=== PATIENT | female | born 1955 | race Caucasian/White ===

== ENCOUNTER → 2016-10-25 | Outpatient (CLI) | payer BC ==
[~2016-10-25] MED LIST: DIOVAN PO; LEXAPRO PO; NIFEDICAL PO; WELCHOL625 MG PO; [UNRECOGNIZED DRUG - OTHER]
--- NOTE | ~2016-10-25 | MR113 ---
[facility] A Service of [facility] & [facility] RADIOLOGY TEXT RESULTS PATIENT: ОЛЕГ PLUMMER LOCATION: [facility] : 55 UNIT #: [id number] AGE: [address]: Myles Martin MD SEX: F ORDER DR: [id number] [address] [address] [id number] P MR#: [id number] Acc #: [id number] NAME: ОЛЕГ PLUMMER : 1955 SEX: F STUDY DATE/TIME: 10/25/2016 12:05 UNIT: [facility] ROOM: STUDY DESCRIPTION: MR Lumbar Wo Contrast Attending Physician: Myles Martin M.D. Referring Physician: Myles Martin M.D. Ordering Physician: Myles Martin M.D. Primary Care Physician: Myles Martin M.D. MRI CENTER REPORT This report is preliminary unless electronic signature is present. EXAM Lumbar spine MRI without. HISTORY 61-year-old female who complains of low back pain with bilateral leg radiculopathy for 3 weeks. Decreased range of motion. Sudden onset of pain when getting into a truck. No history of cancer. COMMENT MRI of the lumbar spine performed without contrast using routine 1.5T wide-bore imaging technique. There are comparison plain films from 01/03/2011. There is grade 1 anterolisthesis of L3 on L4 which is probably new from that time and secondary to severe facet arthritis. It measures about 3-4 mm. There is disc desiccation in general from T12-L1 through L4-5 and there is loss of intervertebral disc height, psmd-pc-kcjmcapi at L3-4 and milder at T12-L1 and L1-2. The conus medullaris terminates at L1-2 and is normal. There is a component of epidural lipomatosis present at multiple levels. There are mild marrow endplate degenerative changes at the 3-4 level, type 2 posteriorly inferiorly L3. At T12-L1, there is moderate facet degenerative change bilaterally with mild ligamentum flavum thickening. There is mild concentric desiccated disc bulge and mild effacement of the thecal sac but no significant canal or foraminal stenosis. At L1-2, there is moderate facet degenerative change, right greater than left, with ligamentum flavum thickening. Some a mild concentric disc bulge, mild effacement of the thecal sac, but no significant central canal stenosis. The epidural fat pad is prominent. No significant foraminal impingement. [facility] A Service of [facility] RADIOLOGY TEXT RESULTS PATIENT: ОЛЕГ PLUMMER LOCATION: [facility] : 55 UNIT #: [id number] AGE: [address]: Myles Martin MD SEX: F ORDER DR: At L2-3, there is moderate right greater than left-side facet arthritis with mild ligamentum flavum thickening. The epidural fat pad is prominent posteriorly. There is no focal disc protrusion or extrusion. There is no canal stenosis at the level of L2-3 itself. At L3-4, there is a large disc extrusion associated with the grade 1 anterolisthesis of L3 on L4. There is severe bilateral facet degenerative change, ssnmfrea-zt-qdlzwk ligamentum flavum thickening bilaterally. There is a broad posterior protrusion with a superimposed extrusion in the left paramedian location and this extrusion extends cephalad from the level of the disc filling the left lateral recess. It appears to remain contiguous with the disc but there are components which have different signal characteristics and could appear to be sequestered if surgery is performed. The extrusion measures about 2.2 cm SI dimension, 1 cm AP dimension, and 1.3 cm ML dimension. There is severe mass effect on the left lateral recess. There is severe canal stenosis and fairly severe mass effect on the right lateral recess. There is mild right, ioub-ph-wooemyyl left-side foraminal narrowing. At L4-5, there is moderate facet arthritis bilaterally with moderate ligamentum flavum thickening. There is a broad-based posterior disc protrusion more prominent left vttetkrpen-pr-nyvpgbyhsrbvxg location. There is mild central canal stenosis and mass effect on left greater than right lateral recess. There is only mild inferior foraminal narrowing on the left. At L5-S1, there is moderate facet degenerative change bilaterally with mjbn-yq-jortpxzf ligamentum flavum thickening. Minimal posterior disc bulge with no canal stenosis. Only mild mass effect on the left greater than right lateral recess. No foraminal impingement. IMPRESSION There is grade 1 anterolisthesis of L3 on 4 secondary to severe facet arthritis. Additionally, there is a superimposed extrusion predominately left paramedian in location extending cephalad from the disc level remaining contiguous with it. The combination of findings result in severe canal stenosis at the level of L3-4 and posterior to L3. The extrusion probably extends cephalad posterior to the lower two-thirds of the L3 vertebral body. Portions of the extrusion could be sequestered if surgery is performed given that the signal characteristics are different. Please see full description of findings above. Dictated by... Jennie Medellin M.D. THIS IS AN ELECTRONICALLY VERIFIED REPORT [facility] A Service of [facility] RADIOLOGY TEXT RESULTS PATIENT: ОЛЕГ PLUMMER [id number] 55 UNIT #: [id number] AGE: [address]: Myles Martin MD SEX: F ORDER DR: Jennie Medellin M.D. at 10/26/2016 1:56 PM HOWIE/ted TD: 10/26/2016 09:19 JOB #: [id number] MRI CENTER REPORT Page 1 of 1
== END | disposition home or self-care (01) ==
LOC: SMRI 07:27
DX: M54.5 Low back pain (principal); M43.16 Spondylolisthesis, lumbar region; M48.06 Spinal stenosis, lumbar region; M51.26 Other intervertebral disc displacement, lumbar region
CPT/HCPCS: 72148